=== PATIENT | male | born 1955 | race Caucasian/White ===

== ENCOUNTER 2025-02-15 11:50 | Day surgery (SDC) | payer OTHER ==
[~2025-02-15] VITALS: Ht 154.9 cm; Wt 58.3 kg
[~2025-02-15 11:50] MED LIST: Lactated Ringer's 1,000 ML IV ONE; propofoL 50 ML IV ONE
[2025-02-15] MEDS ORDERED: METF500 (12:45)
[2025-02-15] MEDS ORDERED: JARDIANCE10 MG (12:45)
[2025-02-15] MEDS ORDERED: Vitamin D1000 UNI1 (12:45)
[2025-02-15] MEDS ORDERED: ASPI81CH PO (12:45)
[2025-02-15] MEDS ORDERED: ATOR40TA (12:45)
[2025-02-15] MEDS ORDERED: PREG300 (12:46)
[2025-02-15] MEDS ORDERED: Lactated Ringer's 1,000 ML IV ONE (13:05)
--- NOTE | 2025-02-15 13:21 | NUR ---
02/15/25 1321 Raquel Joshi HR [id number] IN PRE OP. MD AWARE. PT DENIED HEART PALPITATIONS OR SHORTNESS OF BREATH. PT ENDORES FEELING SLIGHTLY ANXIOUS "IT'S PROBABLY BECAUSE I AM HERE." MD REQUESTED IV STARTED IMMEDIATELY AND FLUIDS GIVEN FOR DEHYDRATION SYMPTOMS. FLUIDS WIDE OPEN IN PRE-OP, ABOUT 250ML GIVEN IN PREOP. MD OKAY TO PROCEED.
== END 2025-02-15 14:21 | disposition home or self-care (01) ==
LOC: ORSCSDS 11:50
PROVIDERS: Specialist
PROC: 0DBL8ZX Excision of Transverse Colon, Via Natural or Artificial Opening Endoscopic, Diagnostic (ICD-10-PCS; principal; 2025-02-15 13:15)
DX: Z12.11 Encounter for screening for malignant neoplasm of colon (principal); R19.5 Other fecal abnormalities; Z86.0100 Personal history of colon polyps, unspecified; D12.3 Benign neoplasm of transverse colon; K64.4 Residual hemorrhoidal skin tags; E11.9 Type 2 diabetes mellitus without complications; Z79.84 Long term (current) use of oral hypoglycemic drugs; Z79.82 Long term (current) use of aspirin; Z79.899 Other long term (current) drug therapy
CPT/HCPCS: 88305; J2704; J7120